=== PATIENT | male | born 1980 | race Hispanic/Latino ===

== ENCOUNTER 2024-04-22 05:41 | Emergency (ER) | payer BC, OTHER ==
[2024-04-22] MEDS ORDERED: NA CHLORIDE 0.9% 1,000 ML ONE (06:02)
[2024-04-22] MEDS ORDERED: ONDANSETRON 4 MG/2 ML VIAL ONE (06:02)
[2024-04-22] MEDS ORDERED: MORPHINE 4 MG/ML SYR ONE (06:02)
[2024-04-22 06:06] LABS: Absolute Basophils 0.1 K/uL (0-0.5); Absolute Eosinophils 0.1 K/uL (0-0.5); Absolute Lymphocytes (CBC) 2.9 K/uL (0.7-4.9); Absolute Monocytes 0.6 K/uL (0.1-1.3); Absolute Neutrophil 7.9 K/uL (1.8-8.0); Basophils % 0.5 % (0-1.3); Eosinophils % 1.2 % (0-4.4); Hematocrit 42.2 % (39.6-49.0); Hemoglobin 14.1 g/dL (13.6-17.9); Lymphocytes % 25.3 % (15.3-44.8); MCH 30.8 pg (27.0-35.0); MCHC 33.4 g/dL (32.0-36.0); MCV 92.2 fL (80-100); MPV 8.6 fL (7.6-11.3); Monocytes % 5.1 % (3.3-12.3); Neutrophils % 67.9 % (41.7-73.7); Nucleated Red Blood Cells % 0.1 % (0-0); Platelets 208 thou/uL (152-406); RBC Red Blood Cell Count 4.58 M/uL (4.33-5.43); Red Cell Distribution Width 13.7 % (12.1-15.2)
--- NOTE | 2024-04-22 06:27 | RAD REPORT ---
EXAM DESCRIPTION: CTAbdomen Pelvis Wo Contrast - 04/22/2024 6:18 am CLINICAL HISTORY: Abd pain;Flank pain COMPARISON: No comparisonsNo comparisons TECHNIQUE: CT of the abdomen and pelvis was performed. All CT scans are performed using dose optimization technique as appropriate and may include automated exposure control or mA/KV adjustment according to patient size. FINDINGS: Lower chest: No acute abnormality. Mild circumferential thickened distal esophagus could r eflect esophagitis. Liver: No acute abnormality or suspicious lesions. Biliary: No biliary ductal dilatation. Stomach: No significant focal abnormality. Duodenum: No significant focal abnormality. Pancreas: No significant abnormality. Spleen: No significant abnormality. Adrenal: No suspicious lesions. Kidney/ureter: Mild left-sided hydronephrosis. 3 mm stone in the left proximal ureter. Punctate stone in the right and left upper pole kidneys. Retroperitoneum: No retroperitoneal adenopathy. Vascular: No aneurysm. Bowel: Normal appendix.. Peritoneum: No ascites or free air. Bladder: Grossly unremarkable. Reproductive: No adnexal masses. Bones: No acute fracture. Other: n/a IMPRESSION: Mild left-sided hydronephrosis secondary to a 3 mm stone in left proximal ureter.
[2024-04-22 06:28] LABS: Anion Gap 10.3 mEq/L (5.0-15.0); BUN Blood Urea Nitrogen 15 mg/dL (7-18); Bicarbonate 27 mEq/L (21-32); Glomerular Filtration Rate 80 ml/min (=/>90); Glucose Level 138 mg/dL (74-106); Potassium 3.3 mEq/L (3.5-5.1); Sodium Level 140 mEq/L (136-145)
[2024-04-22 06:30] LABS: Troponin High Sensitivity < 3.0 pg/mL (<58.9)
--- NOTE | 2024-04-22 07:01 | RAD REPORT ---
EXAM DESCRIPTION: RAD - Chest Single View - 04/22/2024 6:20 am CLINICAL HISTORY: COUGH COMPARISON: No comparisons FINDINGS: Lines: None. Lungs: No evidence of edema or pneumonia. Pleural: No significant pleural effusions or pneumothorax. Cardiac: The heart size is within normal limits. Mediastinum: Within normal limits. Bones: No acute fractures. Other: None IMPRESSION: No acute cardiopulmonary disease.
--- NOTE | 2024-04-22 07:38 | EDPHYS ---
Physician Documentation [facility] Name: Robin Baptiste Age: 43 yrs Sex: Male : 1980 Arrival Date: 04/22/2024 Time: 05:41 Bed 8 Private MD: ED Physician Berny Duke HPI: 04/22 05:58 This 43 yrs old Male presents to ER via EMS with complaints of flank pain. ec2 05:58 Patient arrives today for evaluation of left-sided flank pain as well as and a syncopal ec2 episode. Patient reports and flank pain rating to the abdomen. Patient denies any chest pain difficulty breathing. Patient reports he still having current pain. No reported history of ureteral stones.. Historical: - Allergies: 05:48 No Known Allergies; jh8 - Immunization history:: Adult Immunizations up to date. - Infectious Disease History:: Denies. - Social history:: Smoking status: Patient denies any tobacco usage or history of. ROS: 05:58 Constitutional: as per hpi ec2 Exam: 05:58 Constitutional: GEN: NAD Head: atraumatic Eyes: EOMI Ears: External ears are ec2 normal. CV: regular rate LUNGS: no respiratory distress ABD: non-distended, left abdomen TTP SKIN: no evidence of rashes MSK: no evidence of trauma Vital Signs: 05:46 BP 128 / 88; Pulse 75; Resp 18; Temp 98; Pulse Ox 100% ; Pain 7/10; jh8 08:51 BP 135 / 75; Pulse 75; Resp 18; Pulse Ox 100% ; mb9 05:46 Pain Scale: Adult jh8 MDM: 05:43 Patient medically screened. ec2 05:58 Data reviewed: vital signs. ED course: Patient arrives today for evaluation of left ec2 flank pain. Examination remarkable for well-appearing nontoxic and appears otherwise hemodynamically stable with an abdominal TTP. Will obtain lab work, EKG, CT imaging. Differential includes ureteral stone, pyelonephritis. EKG obtained, independently reviewed and interpreted by me, shows normal sinus rhythm, rate of 57, no acute ST segment elevations, intervals are nonconcerning.. 06:35 ED course: Metabolic profile shows slight hypokalemia. CBC reassuring, troponin within ec2 normal ranges. CT imaging shows a small 3 mm ureteral stone. . 04/22 05:44 Order name: Basic Metabolic Panel; Complete Time: 06:34 ec2 04/22 05:44 Order name: CBC with Diff; Complete Time: 06:34 ec2 04/22 05:44 Order name: Troponin HS; Complete Time: 06:34 ec2 04/22 05:44 Order name: XRAY Chest (1 view); Complete Time: 07:06 ec2 04/22 05:44 Order name: CT Abd/Pelvis - Without Contrast; Complete Time: 06:34 ec2 04/22 05:44 Order name: EKG; Complete Time: 05:45 ec2 04/22 05:44 Order name: Cardiac monitoring; Complete Time: 05:52 ec2 04/22 05:44 Order name: EKG - Nurse/Tech; Complete Time: 05:55 ec2 04/22 05:44 Order name: IV Saline Lock; Complete Time: 05:52 ec2 04/22 05:44 Order name: Labs collected and sent; Complete Time: 05:52 ec2 04/22 05:44 Order name: O2 Per Protocol; Complete Time: 05:52 ec2 04/22 05:44 Order name: O2 Sat Monitoring; Complete Time: 05:52 ec2 Administered Medications: 06:07 Drug: morphine IVP or IV 4 mg IVP once over 4 mins Route: IVP; Infused Over: 4 mins; cp4 Site: left antecubital; 08:50 Follow up: Response: No adverse reaction mb9 06:07 Drug: Ondansetron IVP 4 mg IVP once; over 2 minutes Route: IVP; Site: left antecubital; cp4 08:50 Follow up: Response: No adverse reaction mb9 06:07 Drug: NS 0.9% IV 1000 ml IV at 1 bolus Per protocol; 1000 mL bolus Route: IV; Rate: 1 cp4 bolus; Site: left antecubital; 08:51 Follow up: Response: No adverse reaction; IV Status: Completed infusion mb9 08:50 Drug: fentaNYL (PF) IVP 100 mcg IVP once Route: IVP; Site: left forearm; mb9 09:10 Follow up: Response: No adverse reaction mb9 Disposition Summary: 04/22/24 07:38 Discharge Ordered Notes: Location: Home yee Condition: Stable yee Diagnosis - Calculus of ureter yee Followup: ec2 - With: Prashant Juarez MD - When: - Reason: Recheck today's complaints Discharge Instructions: - Discharge Summary Sheet ec2 - Kidney Stones, [id number] ec2 Forms: - Medication Reconciliation Form yee - Antibiotic Education yee - Prescription Opioid Use yee - Patient Portal Instructions yee - Leadership Thank You Letter yee - Work release form mb9 Prescriptions: - acetaminophen-codeine 300-30 mg Oral tablet - take 1 tablet ORAL route every 8 hours; 15 tablet; Refills: 0, Product ec2 Selection Permitted - tamsulosin 0.4 mg Oral capsule - take 1 capsule ORAL route once; 14 capsule; Refills: 0, Product Selection ec2 Permitted - Zofran 4 mg Oral Tablet - take 1 tablet ORAL route every 12 hours As needed; 20 tablet; Refills: 0, ec2 Product Selection Permitted Signatures: Dispatcher [employer] Jemal Gamez MD MD cha Wilkerson, Frida Dewitt RN RN mb9 Breny Duke MD MD ec2 Shannan Mckeon cp4 Luigi Hawthorne RN RN jh8 Corrections: (The following items were deleted from the chart) 05:48 05:48 PMHx: Hypertension; jh8 jh8 06:00 05:58 ED course: Patient arrives today for evaluation of left flank pain. Examination ec2 remarkable for well-appearing nontoxic and appears otherwise hemodynamically stable with an abdominal TTP. Will obtain lab work, EKG, CT imaging. Differential includes ureteral stone, pyelonephritis. EKG obtained, independently reviewed and interpreted by me, shows normal sinus rhythm, rate of 57, no acute ST segment ovation's, normal nonconcerning.. ec2
--- NOTE | 2024-04-22 07:38 | ER ---
Nurse's Notes [facility] Name: Robin Baptiste Age: 43 yrs Sex: Male : 1980 Arrival Date: 04/22/2024 Time: 05:41 Bed 8 Private MD: Diagnosis: Calculus of ureter Presentation: 04/22 05:46 Chief complaint: EMS states: woke up with lt flank pain, possible syncopal episode jh8 reported by , denies any pmh. Coronavirus screen: Vaccine status: Patient reports receiving the 2nd dose of the covid vaccine. [facility] Client denies travel out of the [place] in the last 14 days. At this time, the client does not indicate any symptoms associated with coronavirus-19. Ebola Screen: Patient negative for fever greater than or equal to 101.5 degrees Fahrenheit, and additional compatible Ebola Virus Disease symptoms Patient denies exposure to infectious person. Patient denies travel to an Ebola-affected area in the 21 days before illness onset. No symptoms or risks identified at this time. Initial Sepsis Screen: Does the patient meet any 2 criteria? No. Patient's initial sepsis screen is negative. Does the patient have a suspected source of infection? No. Patient's initial sepsis screen is negative. Risk Assessment: Do you want to hurt yourself or someone else? Patient reports no desire to harm self or others. Onset of symptoms was April 22, 2024. 05:46 Method Of Arrival: EMS: [facility] 05:46 Acuity: LEXI 3 8 Triage Assessment: 05:48 General: Appears uncomfortable, obese, well groomed, well developed, well nourished. jh8 Pain: Complains of pain in abdomen. Neuro: Level of Consciousness is awake, alert, obeys commands, Oriented to person, place, time, situation, Appropriate for age. Cardiovascular: Patient's skin is warm and dry. Rhythm is sinus rhythm. Respiratory: Airway is patent Trachea midline Respiratory effort is even, unlabored, Respiratory pattern is regular, symmetrical. GI: Abdomen is round non-distended, Abdomen is tender to palpation in left upper quadrant. : No deficits noted. No signs and/or symptoms were reported regarding the genitourinary system. Musculoskeletal: No deficits noted. No signs and/or symptoms reported regarding the musculoskeletal system. Historical: - Allergies: 05:48 No Known Allergies; jh8 - Immunization history:: Adult Immunizations up to date. - Infectious Disease History:: Denies. - Social history:: Smoking status: Patient denies any tobacco usage or history of. Screenin:52 [facility] ED Fall Risk Assessment (Adult) History of falling in the last 3 months, mb9 including since admission No falls in past 3 months (0 pts) Confusion or Disorientation No (0 pts) Intoxicated or Sedated No (0 pts) Impaired Gait No (0 pts) Mobility Assist Device Used No (0 pt) Altered Elimination No (0 pt) Score/Fall Risk Level 0 - 2 = Low Risk Oriented to surroundings, Maintained a safe environment, Educated pt \T\ family on fall prevention, incl call for assistance when getting out of bed. Abuse screen: Denies threats or abuse. Nutritional screening: No deficits noted. Tuberculosis screening: No symptoms or risk factors identified. Assessment: 08:00 Reassessment: D/C pending ride home. mb9 08:44 Reassessment: No changes from previously documented assessment. Patient and/or family mb9 updated on plan of care and expected duration. Pain level reassessed. Patient is alert, oriented x 3, equal unlabored respirations, skin warm/dry/pink. 09:10 Reassessment: Patient and/or family updated on plan of care and expected duration. Pain mb9 level reassessed. Patient is alert, oriented x 3, equal unlabored respirations, skin warm/dry/pink. Patient states feeling better. Patient states symptoms have improved. Vital Signs: 05:46 BP 128 / 88; Pulse 75; Resp 18; Temp 98; Pulse Ox 100% ; Pain 7/10; jh8 08:51 BP 135 / 75; Pulse 75; Resp 18; Pulse Ox 100% ; mb9 05:46 Pain Scale: Adult 8 ED Course: 05:42 Patient arrived in ED. ec2 05:43 Berny Duke MD is Attending Physician. ec2 05:48 Triage completed. [facility] 05:50 Arm band placed on right wrist. Patient placed in an exam room, on a stretcher, on 8 adobe ball mixer, on pulse oximetry. 05:52 Maintain EMS IV. Dressing intact. Good blood return noted. Site clean \T\ dry. Gauge \T\ cp 4 site: 20 G LAC. Flushed with 10 mL NS. 05:52 Initial lab(s) drawn, by mt, sent to lab. cp4 06:20 CT Abd/Pelvis - Without Contrast In Process Unspecified. EDMS 06:22 XRAY Chest (1 view) In Process Unspecified. EDMS 07:38 Prashant Juarez MD is Referral Physician. [facility] 08:00 Placed in gown. Bed in low position. Call light in reach. Side rails up X 1. mb9 08:52 Frida Mai RN is Primary Nurse. mb9 08:58 No provider procedures requiring assistance completed. Patient did not have IV access mb9 during this emergency room visit. Administered Medications: 06:07 Drug: morphine IVP or IV 4 mg IVP once over 4 mins Route: IVP; Infused Over: 4 mins; cp4 Site: left antecubital; 08:50 Follow up: Response: No adverse reaction mb9 06:07 Drug: Ondansetron IVP 4 mg IVP once; over 2 minutes Route: IVP; Site: left antecubital; cp4 08:50 Follow up: Response: No adverse reaction mb9 06:07 Drug: NS 0.9% IV 1000 ml IV at 1 bolus Per protocol; 1000 mL bolus Route: IV; Rate: 1 cp4 bolus; Site: left antecubital; 08:51 Follow up: Response: No adverse reaction; IV Status: Completed infusion mb9 08:50 Drug: fentaNYL (PF) IVP 100 mcg IVP once Route: IVP; Site: left forearm; mb9 09:10 Follow up: Response: No adverse reaction mb9 Medication: 08:52 VIS not applicable for this client. mb9 Outcome: 07:38 Discharge ordered by . yee 09:10 Discharged to home via ambulance, with family, mb9 09:10 Condition: stable 09:10 Discharge instructions given to patient, family, Instructed on discharge instructions, follow up and referral plans. Demonstrated understanding of instructions, follow-up care, medications, Prescriptions given X 3, 09:11 Patient left the ED. mb9 Signatures: Dispatcher [employer] EDJemal Villanueva MD MD cha Wilkerson, Mary Beth, RN RN mb9 Berny Duke MD MD ec2 Potter, Christina cp4 Luigi Hawthorne RN RN jh8 Corrections: (The following items were deleted from the chart) 05:48 05:48 PMHx: Hypertension; jh8 jh8
[2024-04-22] MEDS ORDERED: FENTANYL CITR 100 MCG/2 ML ONE (08:46)
[2024-04-22] MEDS ORDERED: NA CHLORIDE 0.9% 100 ML ONE (08:46)
[2024-04-22 09:14] VITALS: TEMP 98; O2SAT 100
[2024-04-22 09:15] VITALS: BP 135/75
--- OUTSIDE RECORDS SUMMARY | 2024-04-24 12:06 | XMS REPORT | Continuity of Care Document ---
Author Name Unknown Address [address] [facility] [address] [place] [address] [facility] thconnect Address [address] [facility] 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 Role Phone Bettina Serna MD Primary Care Physician BETTINA SERNA Attending Clinician REINALDO Castillo Attending Clinician Unavailable Reinaldo Ricks Attending Clinician [phone] Bettina Serna MD Attending Clinician + [phone] Danielle Medina Attending Clinician [phone] DANIELLE FONSECA Attending Clinician Unavailable Doctor Unassigned, [place] Attending Clinician U navailable Lab, Ang - Db Attending Clinician Unavailable Lab, Adc Fam Pob I Attending Clinician Unavailab KWAN Ann Attending Clinician Unavailable PINEDA WHITTAKER Attending Clinician Unavail able Pineda Whittaker DO Attending Clinician [phone] Shari Gallego Attending Clinician [phone] Pcp, Patient Does Not Have A Attending Clinician Pob1, Acute Care Clinic Attending Clinician Lynn Ocampo Attending Clinician [phone] Payers Payer Name Policy Type Policy Number Effective Date Expirati on Date Source [facility] [id number] 2022 00:00:00 [employer] [place] OUT [employer] [place] [id number] 2016 00:00:00 2022 00:00:00 Problems Condition Name Condition Details Condition Category Status Onset Date Resolution Date Last Treatment Date Treating Clinician Comments Source Right arm pain Right arm pain Disease Active 01-17 00:00: 00 [facility] Sleep apnea, obstructiv e Sleep apnea, obstructiv e Disease Active 02-04 00:00: 00 [facility] Essential hypertensi on Essential hypertensi on Disease Active 02-04 00:00: 00 [facility] Allergies, Adverse Reactions, Alerts Allergy Name Allergy Type Status Severity Reaction(s) Onset Date Inactive Date Treating Clinician Comments Source NO KNOWN ALLERGIE S Drug Class Active [facility] Social History Social Habit Start Date Stop Date Quantity Comments Source History SDOH Alcohol Frequency [facility] History SDOH Alcohol Std Drinks [facility] History SDOH Alcohol Binge [facility] History of tobacco use Occasional tobacco smoker [facility] of Social function 2024-01-18 00:00:00 2024-01-18 00:00:00 [facility] Alcoholic beverage intake 2024-01-18 00:00:00 2024-01-18 00:00:00 .14 /d [facility] Alcohol intake 2023-06-10 00:00:00 2023-06-10 00:00:00 .14 /d [facility] Tobacco use and exposure 2023-02-07 00:00:00 2023-02-07 00:00:00 Smokeless tobacco non-user [facility] Exposure to SARS-CoV-2 (event) 2022-06-18 00:00:00 2022-06-28 11:00:00 Not sure [facility] Alcohol Comment 2016-02-05 00:00:00 2016-02-05 00:00:00 occ [facility] Sex assigned at 1980 00:00:00 1980 00:00:00 [facility] Smoking Status Start Date Stop Date Source Occasional tobacco smoker 2023-02-07 00:00:00 [facility] Medications Ordered Medication Name Filled Medication Name Start Date Stop Date Current Medication? Ordering Clinician Indication Dosage Frequency Signature (SIG) Comments Components Source tiZANidine 2 mg tablet 01-17 00:00: 00 Yes [id number] 2mg Take 1 tablet by mouth every 6 (six) hours as needed for Pain (scale 4-6). [facility] methylPREDN ISolone (MEDROL, JULES,) 4 mg tablets 01-17 00:00: 00 01-23 04:59 :00 No [id number] Take by mouth SEE-INSTRU CTIONS for 5 days. follow package directions [facility] LOSARTAN 100 mg tablet 12-20 00:00: 00 Yes [id number] 100mg TAKE 1 TABLET BY MOUTH EVERY DAY IN THE MORNING [facility] HYDROCHLORO THIAZIDE 12.5 mg capsule 12-20 00:00: 00 Yes [id number] 12.5mg TAKE 1 CAPSULE BY MOUTH EVERY MORNING [facility] mupirocin 2 % ointment 2022-09 0 00:00: 00 Yes [id number] Apply to area(s) 3 (three) times daily. [facility] doxycycline hyclate 100 mg tablet 2022-09 0 00:00: 00 06-18 04:59 :00 No [id number] 100mg Take 1 tablet by mouth in the morning and 1 tablet in the evening. Do all this for 7 days. [facility] predniSONE 10 mg tablet 05 00:00: 00 06-10 00:00 :00 No [id number] 10mg Take 1 tablet by mouth in the morning and 1 tablet in the evening. [facility] losartan 100 mg tablet 2- 00:00: 00 12-20 00:00 :00 No [id number] 100mg Take 1 tablet by mouth in the morning. [facility] hydroCHLORO thiazide 12.5 mg capsule 2-03 00:00: 00 12-20 00:00 :00 No [id number] 12.5mg Take 1 capsule by mouth in the morning. [facility] COLCHICINE 0.6 mg tablet 2021-09 00:00: 00 Yes [id number] TAKE 1 TABLET BY MOUTH EVERY DAY IN THE MORNING [facility] allopurinoL 300 mg tablet 2021-09 00:00: 00 Yes [id number] 300mg Take 1 tablet by mouth in the morning. [facility] colchicine 0.6 mg tablet 2021-09 00:00: 00 07-20 00:00 :00 No [id number] 9104 .6mg Take 1 tablet by mouth in the morning. [facility] indomethaci n 25 mg capsule 03-29 00:00: 00 Yes [id number] 25mg Take 1 capsule by mouth in the morning and 1 capsule at noon and 1 capsule in the evening. Take with meals. [facility] losartan 100 mg tablet 03-29 00:00: 00 10-08 00:00 :00 No [id number] 100mg Take 1 tablet by mouth in the morning. [facility] hydroCHLORO thiazide 12.5 mg capsule 03-29 00:00: 00 10-08 00:00 :00 No [id number] 12.5mg Take 1 capsule by mouth in the morning. [facility] HYDROCHLORO THIAZIDE 12.5 mg capsule 12 00:00: 00 03-29 00:00 :00 No [id number] TAKE 1 CAPSULE BY MOUTH EVERY DAY [facility] LOSARTAN 100 mg tablet 06 00:00: 00 03-29 00:00 :00 No [id number] TAKE 1 TABLET BY MOUTH EVERY DAY [facility] indomethaci n 25 mg capsule 5-20 00:00: 00 03-29 00:00 :00 No [id number] 25mg Take 1 capsule by mouth 3 (three) times daily with meals. [facility] Immunizations Ordered Immunization Name Filled Immunization Name Date Status Comments Source Influenza Virus Vaccine Quad IM, Preserv and ABX Free 6 MO-64 YRS 2022-06-28 00:00:00 Completed [facility] Influenza Virus Vaccine Quad IM, Preserv and ABX Free 6 MO-64 YRS 2022-06-28 00:00:00 Completed [facility] Influenza Virus Vaccine Quad IM, Preserv and ABX Free 6 MO-64 YRS 2022-06-28 00:00:00 Completed [facility] Influenza Virus Vaccine Quad IM, Preserv and ABX Free 6 MO-64 YRS 2022-06-28 00:00:00 Completed [facility] Influenza Virus Vaccine Quad IM, Preserv and ABX Free 6 MO-64 YRS 2022-06-28 00:00:00 Completed [facility] Influenza Virus Vaccine Quad IM, Preserv and ABX Free 6 MO-64 YRS 2022-06-28 00:00:00 Completed [facility] Influenza Virus Vaccine Quad IM, Preserv and ABX Free 6 MO-64 YRS 2022-06-28 00:00:00 Completed [facility] SARS-COV-2 COVID-19 PFIZER VACCINE 2020-12-12 00:00:00 Completed [facility] SARS-COV-2 COVID-19 PFIZER VACCINE 2020-12-12 00:00:00 Completed [facility] SARS-COV-2 COVID-19 PFIZER VACCINE 2020-12-12 00:00:00 Completed [facility] SARS-COV-2 COVID-19 PFIZER VACCINE 2020-12-12 00:00:00 Completed [facility] SARS-COV-2 COVID-19 PFIZER VACCINE 2020-12-12 00:00:00 Completed [facility] SARS-COV-2 COVID-19 PFIZER VACCINE 2020-12-12 00:00:00 Completed [facility] SARS-COV-2 COVID-19 PFIZER VACCINE 2020-12-12 00:00:00 Completed [facility] SARS-COV-2 COVID-19 PFIZER VACCINE 2020-12-12 00:00:00 Completed [facility] SARS-COV-2 COVID-19 PFIZER VACCINE 2020-12-12 00:00:00 Completed [facility] SARS-COV-2 COVID-19 PFIZER VACCINE 2020-12-12 00:00:00 Completed [facility] SARS-COV-2 COVID-19 PFIZER VACCINE 2020-12-12 00:00:00 Completed [facility] SARS-COV-2 COVID-19 PFIZER VACCINE 2020-11-21 00:00:00 Completed [facility] SARS-COV-2 COVID-19 PFIZER VACCINE 2020-11-21 00:00:00 Completed [facility] SARS-COV-2 COVID-19 PFIZER VACCINE 2020-11-21 00:00:00 Completed [facility] SARS-COV-2 COVID-19 PFIZER VACCINE 2020-11-21 00:00:00 Completed [facility] SARS-COV-2 COVID-19 PFIZER VACCINE 2020-11-21 00:00:00 Completed [facility] SARS-COV-2 COVID-19 PFIZER VACCINE 2020-11-21 00:00:00 Completed [facility] SARS-COV-2 COVID-19 PFIZER VACCINE 2020-11-21 00:00:00 Completed [facility] SARS-COV-2 COVID-19 PFIZER VACCINE 2020-11-21 00:00:00 Completed [facility] SARS-COV-2 COVID-19 PFIZER VACCINE 2020-11-21 00:00:00 Completed [facility] SARS-COV-2 COVID-19 PFIZER VACCINE 2020-11-21 00:00:00 Completed [facility] SARS-COV-2 COVID-19 PFIZER VACCINE 2020-11-21 00:00:00 Completed [facility] SARS-COV-2 COVID-19 PFIZER VACCINE Unknown Completed [facility] SARS-COV-2 COVID-19 PFIZER VACCINE Unknown Completed [facility] Influenza Virus Vaccine Quad IM, Preserv and ABX Free 6 MO-64 YRS (FLUCELVAX) Unknown Completed [facility] SARS-COV-2 COVID-19 PFIZER VACCINE Unknown Completed [facility] SARS-COV-2 COVID-19 PFIZER VACCINE Unknown Completed [facility] Influenza Virus Vaccine Quad IM, Preserv and ABX Free 6 MO-64 YRS (FLUCELVAX) Unknown Completed [facility] SARS-COV-2 COVID-19 PFIZER VACCINE Unknown Completed [facility] SARS-COV-2 COVID-19 PFIZER VACCINE Unknown Completed [facility] Influenza Virus Vaccine Quad IM, Preserv and ABX Free 6 MO-64 YRS (FLUCELVAX) Unknown Completed [facility] SARS-COV-2 COVID-19 PFIZER VACCINE Unknown Completed [facility] SARS-COV-2 COVID-19 PFIZER VACCINE Unknown Completed [facility] Influenza Virus Vaccine Quad IM, Preserv and ABX Free 6 MO-64 YRS (FLUCELVAX) Unknown Completed [facility] SARS-COV-2 COVID-19 PFIZER VACCINE Unknown Completed [facility] SARS-COV-2 COVID-19 PFIZER VACCINE Unknown Completed [facility] Influenza Virus Vaccine Quad IM, Preserv and ABX Free 6 MO-64 YRS (FLUCELVAX) Unknown Completed [facility] SARS-COV-2 COVID-19 PFIZER VACCINE Unknown Completed [facility] SARS-COV-2 COVID-19 PFIZER VACCINE Unknown Completed [facility] Influenza Virus Vaccine Quad IM, Preserv and ABX Free 6 MO-64 YRS (FLUCELVAX) Unknown Completed [facility] SARS-COV-2 COVID-19 PFIZER VACCINE Unknown Completed [facility] SARS-COV-2 COVID-19 PFIZER VACCINE Unknown Completed [facility] Influenza Virus Vaccine Quad IM, Preserv and ABX Free 6 MO-64 YRS (FLUCELVAX) Unknown Completed [facility] Vital Signs Vital Name Observation Time Observation Value Comments S ource Systolic blood pressure 2024-01-18 16:15:00 107 mm[Hg] [facility] Diastolic blood pressure 2024-01-18 16:15:00 71 mm[Hg] [facility] Heart rate 2024-01-18 16:15:00 92 /min [facility] Body height 2024-01-18 16:15:00 175.3 cm [facility] Body weight 2024-01-18 16:15:00 102.558 kg [facility] BMI 2024-01-18 16:15:00 33.39 kg/m2 [facility] Oxygen saturation in Arterial blood by Pulse oximetry 2024-01-18 16:15:00 99 /min [facility] Systolic blood pressure 2023-06-10 17:55:00 149 mm[Hg] [facility] Diastolic blood pressure 2023-06-10 17:55:00 85 mm[Hg] [facility] Heart rate 2023-06-10 17:53:00 67 /min [facility] Body temperature 2023-06-10 17:53:00 36.72 Nancy [facility] Respiratory rate 2023-06-10 17:53:00 18 /min [facility] Body height 2023-06-10 17:53:00 177.8 cm [facility] Body weight 2023-06-10 17:53:00 121.927 kg [facility] BMI 2023-06-10 17:53:00 38.57 kg/m2 [facility] Oxygen saturation in Arterial blood by Pulse oximetry 2023-06-10 17:53:00 99 /min [facility] Systolic blood pressure 2023-02-07 20:41:00 146 mm[Hg] [facility] Diastolic blood pressure 2023-02-07 20:41:00 95 mm[Hg] [facility] Heart rate 2023-02-07 20:40:00 108 /min [facility] Body temperature 2023-02-07 20:40:00 35.94 Nancy [facility] Body height 2023-02-07 20:40:00 177.8 cm [facility] Body weight 2023-02-07 20:40:00 120.203 kg [facility] BMI 2023-02-07 20:40:00 38.02 kg/m2 [facility] Systolic blood pressure 2022-06-28 16:10:00 123 mm[Hg] [facility] Diastolic blood pressure 2022-06-28 16:10:00 83 mm[Hg] [facility] Heart rate 2022-06-28 16:10:00 97 /min [facility] Body temperature 2022-06-28 16:10:00 36.94 Nancy [facility] Body height 2022-06-28 16:10:00 180.3 cm [facility] Body weight 2022-06-28 16:10:00 117.935 kg [facility] BMI 2022-06-28 16:10:00 36.26 kg/m2 [facility] Systolic blood pressure 2022-03-29 16:21:00 135 mm[Hg] [facility] Diastolic blood pressure 2022-03-29 16:21:00 88 mm[Hg] [facility] Heart rate 2022-03-29 16:21:00 78 /min [facility] Body height 2022-03-29 16:21:00 180.3 cm [facility] Body weight 2022-03-29 16:21:00 135.626 kg [facility] BMI 2022-03-29 16:21:00 41.70 kg/m2 [facility] Procedures Procedure Date / Time Performed Performing Clinicia n Source ASSIGNMENT OF BENEFITS 2023-06-10 17:09:13 Docto r Unassigned, [place] [facility] FLU VACC ([id number]), 6 MO-64 YRS, .5ML, IM, QUAD (FLUCELVAX) 2022-06-28 16:21:34 Bettina Serna [facility] CONSENT/REFUSAL FOR DIAGNOSIS AND TREATMENT 2022-06-28 16:01:26 Doctor Unassigned, [place] [facility] Encounters Start Date/Time End Date/Time Encounter Type Admission Type Attending Clinicians Care Facility Care Department Encounter ID Source 2024-02-15 11:00:00 2024-02-15 11:00:00 Outpatient BETTINA PERKINS [facility] [id number] [facility] 2024-01-18 11:30:00 2024-01-18 11:38:50 Outpatient R REINALDO PETERS [facility] [id number] [facility] 2024-01-18 11:30:00 2024-01-18 11:38:50 Office Visit Re[facility] 1.2.840.114 350.1.13.10 4.2.7.2.686 [id number] [facility] 2023-12-21 00:00:00 2023-12-21 00:00:00 Refill Kjsalty Bettina [facility] 1.2.840.114 350.1.13.10 4.2.7.2.686 [id number] [facility] 2023-12-21 00:00:00 2023-12-21 00:00:00 [facility]ac[facility] 1.2.840.114 350.1.13.10 4.2.7.2.686 [id number] [facility] 2023-06-10 12:30:00 2023-06-10 13:16:57 Office Visit Danielle Fonseca [facility] 1..840.114 350.1.13.10 4.2.7.2.686 [id number] [facility] 2023-06-10 12:30:00 2023-06-10 13:16:57 Outpatient R DANIELLE FONSECA [facility] [id number] [facility] 2023-06-10 00:00:00 2023-06-10 00:00:00 Orders Only Doctor Unassigned, [place] [facility] 1..840.114 350.1.13.10 4.2.7.2.686 [id number] [facility] 2023-02-28 00:00:00 2023-02-28 00:00:00 Refill KjdayanaraBettina reed [facility] 1.2.840.114 350.1.13.10 4.2.7.2.686 [id number] [facility] 2023-02-07 15:45:00 2023-02-07 16:00:00 Office Visit Veselka, [facility] 1.840.114 350.1.13.10 4.2.7.2.686 [id number] [facility] 2023-02-07 15:45:00 2023-02-07 15:45:00 Outpatient Juliet CARDONACOLE BETTINA [facility] [id number] [facility] 2022-10-14 11:15:00 2022-10-14 11:15:00 Outpatient Juliet DAPHNE BETTINA [facility] [id number] [facility] 2022-10-08 00:00:00 2022-10-08 00:00:00 Refill Daphne [facility] 1.84.114 350.1.13.10 4.2.7.2.686 [id number] [facility] 2022-07-20 00:00:00 2022-07-20 00:00:00 Refill Bettina Serna [facility] 1.84.114 350.1.13.10 4.2.7.2.686 [id number] [facility] 2022-06-28 11:15:00 2022-06-28 11:34:07 Outpatient R DAPHNE BETTINA [facility] [id number] [facility] 2022-06-28 11:15:00 2022-06-28 11:34:07 Office Visit Bettina Serna [facility] 1.84114 350.1.13.10 4.2.7.2.686 [id number] [facility] 2022-06-28 00:00:00 2022-06-28 00:00:00 Orders Only Doctor Unassigned, [place] [facility] 1.114 350.1.13.10 4.2.7.2.686 [id number] [facility] 2022-04-23 11:30:00 2022-04-23 11:30:00 Outpatient Juliet CARDONACOLE BETTINA [facility] [id number] [facility] 2022-04-16 10:15:00 2022-04-16 10:15:00 Outpatient Juliet SERNA [facility] [id number] [facility] 2022-03-29 12:00:00 2022-03-29 12:15:00 Last Sawyer Visit Lab, Andrew Serna [facility] 1.2.840.114 350.1.13.10 4.2.7.2.686 [id number] [facility] 2022-03-29 11:00:00 2022-03-29 12:04:03 Outpatient R BETTINA SERNA [facility] [id number] [facility] 2022-03-29 11:00:00 2022-03-29 11:15:00 Office Visit Daphne [facility] 1.2.840.114 350.1.13.10 4.2.7.2.686 [id number] [facility] 2022-03-29 11:00:00 2022-03-29 11:00:00 Outpatient R DAPHNE BETTINA [facility] [id number] [facility] 2022-03-29 00:00:00 2022-03-29 00:00:00 Telephone Daphne [facility] 1.2.840.114 350.1.13.10 4.2.7.2.686 [id number] [facility] 2022-03-24 00:00:00 2022-03-24 00:00:00 [facility] 1.84.114 350.1.13.10 4.2.7.2.686 [id number] [facility] 2022-03-14 00:00:00 2022-03-14 00:00:00 Refill Bettina Serna [facility] 1.84114 350.1.13.10 4.2.7.2.686 [id number] [facility] 2022-03-10 00:00:00 2022-03-10 00:00:00 Refill Daphne [facility] 1.84.114 350.1.13.10 4.2.7.2.686 [id number] [facility] 2022-02-15 00:00:00 2022-02-15 00:00:00 Refill Daphne [facility] 1.84.114 350.1.13.10 4.2.7.2.686 [id number] [facility] 2021-01-23 07:59:48 2021-01-23 08:19:48 Last Sawyer Visit Lab, [facility] Angela Serna [facility] 1.84.114 350.1.13.10 4.2.7.2.686 [id number] [facility] 2021-01-23 08:00:00 2021-01-23 08:00:00 Outpatient R BETTINA SERNA [facility] [id number] [facility] 2021-01-23 00:00:00 2021-01-23 00:00:00 Telephone Bettina Serna [facility] 1.2.840.114 350.1.13.10 4.2.7.2.686 [id number] [facility] 2021-01-22 10:53:04 2021-01-22 11:08:04 Office Visit Bettina Serna [facility] 1.2.840.114 350.1.13.10 4.2.7.2.686 [id number] [facility] 2021-01-22 11:00:00 2021-01-22 11:00:00 Outpatient R BETTINA SERNA [facility] [id number] [facility] 2021-01-16 00:00:00 2021-01-16 00:00:00 Refill Daphne [facility] 1.2.840.114 350.1.13.10 4.2.7.2.686 [id number] [facility] 2021-01-08 00:00:00 2021-01-08 00:00:00 Refill Bettina Serna [facility] 1.2.840.114 350.1.13.10 4.2.7.2.686 [id number] [facility] 2020-12-23 00:00:00 2020-12-23 00:00:00 Refill Daphne [facility] 1.2840.114 350.1.13.10 4.2.7.2.686 [id number] [facility] 2020-12-12 10:20:00 2020-12-12 10:20:00 Outpatient KWAN CANTU [facility] [id number] [facility] 2020-11-21 10:20:00 2020-11-21 10:20:00 Outpatient PINEDA WHITTAKER [facility] [id number] [facility] 2020-11-20 00:00:00 2020-11-20 00:00:00 Patient Outreach Pineda Whittaker [facility] 1.2840.114 350.1.13.10 4.2.7.2.686 [id number] [facility] 2020-06-18 00:00:00 2020-06-18 00:00:00 Refill Kjsalty [facility] 1.840.114 350.1.13.10 4.2.7.2.686 [id number] [facility] 2020-05-22 00:00:00 2020-05-22 00:00:00 Refill Kjdayanaracole [facility] 1.840.114 350.1.13.10 4.2.7.2.686 [id number] [facility] 2020-05-08 00:00:00 2020-05-08 00:00:00 Refill KjdayanaraBettina reed [facility] 1.2840.114 350.1.13.10 4.2.7.2.686 [id number] [id number] [facility] 2020-04-07 00:00:00 2020-04-07 00:00:00 Refill Kjsalty Bettina [facility] 1.2840.114 350.1.13.10 4.2.7.2.686 [id number] [facility] 2020-03-01 00:00:00 2020-03-01 00:00:00 Shari Jimenez [facility] 1.2840.114 350.1.13.10 4.2.7.2.686 [id number] [facility] 2020-03-01 00:00:00 2020-03-01 00:00:00 Telephone Pcp, Patient Does Not Have A [facility] 1..114 350.1.13.10 4.2.7.2.686 [id number] [facility] 2020-03-01 00:00:00 2020-03-01 00:00:00 Refill Bettina Serna [facility] 1..114 350.1.13.10 4.2.7.2.686 [id number] [facility] 2020-02-29 10:00:44 2020-02-29 10:20:44 Urgent Care Pob1, Acute Care Clinic Lynn Rios [facility] 1.114 350.1.13.10 4.2.7.2.686 [id number] [facility] 2020-02-29 10:20:00 2020-02-29 10:20:00 Outpatient R [facility] [id number] [facility] 2020-02-27 00:00:00 2020-02-27 00:00:00 Telephone Daphne [facility] 1.114 350.1.13.10 4.2.7.2.686 [id number] [facility] 2019-12-08 00:00:00 2019-12-08 00:00:00 Refill Bettina Serna [facility] 1..114 350.1.13.10 4.2.7.2.686 [id number] [facility] 2019-11-04 00:00:00 2019-11-04 00:00:00 Refill Bettina Serna [facility] 1..114 350.1.13.10 4.2.7.2.686 [id number] [id number] [facility] 2019-05-03 00:00:00 2019-05-03 00:00:[address] [facility] [place] [facility] [id number] 350.1.13.10 4.2.7.2.686 [id number] [facility] Notes Date/Time Note Provider Source 2023-12-21 15:14:17 Robin Velasquez is a 43 year old male and is calling back to check on refills states he will be out of town on Tuesday and is hoping to get the refills sent in today or tomorrow please. Mayelin Hernández [facility] 2023-12-21 15:12:27 Robin Velasquez is a 43 year old male calling back to check on refills states he will be out of town on Tuesday and is hoping to get the refills sent in today or tomorrow please. Mayelin Hernández [facility] 2023-12-21 15:09:03 Images from the original note were not included. Requested Renewals Name from pharmacy: HYDROCHLOROTHIAZIDE 12.5 MG CP Will file in chart as: HYDROCHLOROTHIAZIDE 12.5 mg capsule Sig: TAKE 1 CAPSULE BY MOUTH EVERY MORNING Disp: 90 capsule Refills: 3 Start: 12/21/2023 Class: eRX For: Essential hypertension To pharmacy: DX Code Needed . Last ordered: 1 year ago (10/08/2022) by Bettina Serna MD Last refill: 08/22/2023 Rx #: [id number] Cardiovascular: Misc. Diuretics Ssgegr6912/21/2023 03:08 PM Protocol Details K in normal range and within 180 days Na in normal range and within 180 days Cr in normal range and within 180 days Valid encounter within last 12 months To be filled at: [facility]/pharmacy #[id number] - [place], [place] - [address] AT [facility] CMP NA (mmol/L) Date Value 03/29/2022 142 K (mmol/L) Date Value 03/29/2022 4.4 CALCIUM (mg/dL) Date Value 03/29/2022 9.3 CL (mmol/L) Date Value 03/29/2022 108 BUN (mg/dL) Date Value 03/29/2022 11 CREATININE (mg/dL) Date Value 03/29/2022 0.87 GLUCOSE (mg/dL) Date Value 03/29/2022 101 CO2 TOTAL (mmol/L) Date Value 03/29/2022 24 ALBUMIN (g/dL) Date Value 03/29/2022 4.4 T PROTEIN (g/dL) Date Value 03/29/2022 7.4 TOTAL BILI (mg/dL) Date Value 03/29/2022 0.6 ALT(SGPT) (U/L) Date Value 09/12/2018 42 ALTv (U/L) Date Value 03/29/2022 43 AST(SGOT) (U/L) Date Value 03/29/2022 29 ALK PHOS (U/L) Date Value 03/29/2022 80 Recent Visits Date Type Provider Dept 06/10/23 Office Visit Danielle Fonseca PA [facility] 02/07/23 Office Visit Bettina Serna MD [facility] Showing recent visits within past 540 days with a meds authorizing provider and meeting all other requirements Future Appointments No visits were found meeting these conditions. Showing future appointments within next 150 days with a meds authorizing provider and meeting all other requirements Rebekah Pimentel LVN [facility] 2023-12-21 15:07:57 Images from the original note were not included. Requested Renewals Name from pharmacy: LOSARTAN POTASSIUM 100 MG TAB Will file in chart as: LOSARTAN 100 mg tablet Sig: TAKE 1 TABLET BY MOUTH EVERY DAY IN THE MORNING Disp: 90 tablet Refills: 3 Start: 12/21/2023 Class: eRX For: Essential hypertension To pharmacy: DX Code Needed . Last ordered: 1 year ago (10/08/2022) by Bettina Serna MD Last refill: 08/22/2023 Rx #: [id number] Cardiovascular: Angiotensin Receptor Blockers Awujny2812/21/2023 03:07 PM Protocol Details K in normal range and within 360 days Cr in normal range and within 360 days Valid encounter within last 12 months To be filled at: [facility]/pharmacy #[id number] - [place], [place] - [address] [facility] [address] AT [facility] K (mmol/L) Date Value 03/29/2022 4.4 CREATININE (mg/dL) Date Value 03/29/2022 0.87 Recent Visits Date Type Provider Dept 06/10/23 Office Visit Danielle Fonseca PA [facility] 02/07/23 Office Visit Bettina Serna MD [facility] Showing recent visits within past 540 days with a meds authorizing provider and meeting all other requirements Future Appointments No visits were found meeting these conditions. Showing future appointments within next 150 days with a meds authorizing provider and meeting all other requirements Rebekah Pimentel LVN [facility]
== END 2024-04-22 09:11 | disposition home or self-care (01) ==
LOC: ER 05:41
DX: N20.1 Calculus of ureter (principal)
CPT/HCPCS: 93005; 85025; 80048; 36415; 84484; 74176; 71045; 99284; J3010; J2405; J7030